=== PATIENT | female | born 2000 | race Caucasian/White ===

== ENCOUNTER 2020-02-17 20:38 | Emergency (ER) | payer BC ==
[~2020-02-17] VITALS: Ht 167.6 cm; Wt 90.9 kg
[2020-02-17 20:43] VITALS: TEMP 98.9
[2020-02-17] MEDS ORDERED: CEPHALEXIN500 M1 PO (21:01)
[2020-02-17 21:36] VITALS: BP 97/61; PULSE 99
== END 2020-02-17 21:36 | disposition home or self-care (01) ==
LOC: COL.ER 20:38
DX: L25.9 Unspecified contact dermatitis, unspecified cause (principal)
CPT/HCPCS: J1100